=== PATIENT | male | born 1945 | race Hispanic/Latino ===

== ENCOUNTER 2025-03-31 19:39 | Emergency (ER) | payer MEDICARE ==
[~2025-03-31] VITALS: Ht 177.8 cm; Wt 65.8 kg
[2025-03-31 20:07] LABS: IMMATURE GRANULOCYTE ABSOLUTE 0.02 K/uL (0-1); NUCLEATED RED BLOOD CELLS 0.0 % (0.0-0.19); PLATELET COUNT (AUTO) 186 K/uL (130-400); RED BLOOD CELL COUNT(AUTO) 5.15 MIL/uL (4.50-6.20); RED CELL DISTRIBUTION WIDTH 14.3 % (11.0-15.5); WHITE BLOOD COUNT (AUTO) 6.9 K/uL (4.8-10.8)
[2025-03-31 20:14] LABS: CREATININE 1.0 mg/dL (0.5-1.3); GLOMERULAR FILTR. RATE CALC 76.0 mL/min (>90); GLUCOSE,RANDOM 135.0 mg/dL (70-105); SODIUM SERUM 141.0 mmol/L (136-145); UREA NITROGEN, BLOOD 15.0 mg/dL (7-18)
[2025-03-31 20:24] LABS: CREATINE KINASE, TOTAL 54.0 U/L (21-232)
--- NOTE | 2025-03-31 20:24 | ERN ---
ED Note History of Present Illness Stated Complaint: C/O PALPITATIONS, SOB Chief Complaint: Palpitations Time Seen by MD: 19:50 Dictation: This is an 79-year-old male who presented to the emergency room with complaints of off and on palpitations going on for many weeks and feels short of breath. He states that when he has palpitations he feels like a bubble in the epigastric area and lower chest area which gargles and he massages to get some relief. He denied any nausea vomitings. Patient reports feeling severe dizziness when he gets up and walks around. He had similar presentation in 2021 at which time extensive cardiac evaluation was done at the [facility] and he stated that he could not really follow up with any physician as his appointment were was rescheduled multiple times. He also had vestibular testing done which was abnormal. He has not been able to follow up with the ENT physician due to scheduling conflicts. In fact patient has seen a water meter installer in the past 2 years but he was unhappy. Patient basically expressed discontent with a all the physicians that he has seen so far. He denied any syncopal episodes. No headache facial drooping blurred vision diplopia motor weakness or seizure activities Temperature 98.4 pulse 84 respirations 20 blood pressure 165/99 with a pulse oximetry of 96% on room air His chronic medical problems include coronary artery disease status post cardiac stents placed in 2021, hypertension, history of atrial fibrillation Allergies: Coded Allergies: hydrochlorothiazide (Unverified Allergy, Unknown, 03/31/25) Past Medical History Past Medical History: A-Fib, Heart Disease, Hypertension Surgical History: Other Surgical History Other: CARDIAC STENTS Family History: Negative Social History: Negative RN Note Reviewed/Agreed w/PFSH: Yes Review of System Dictation Constitutional: Negative for fever,chills, and weight loss Eyes: Negative for injury, pain,redness, and discharge ENT: Negative for injury,pain or swelling positive for vestibular dysfunction Cardiovascular: Negative for chest pain, and edema positive for palpitations, Respiratory: Positive for shortness of breath, denied cough, and wheezing, Abdomen/GI: Negative for abdominal pain, nausea, vomiting, diarrhea, and constipation Back: Negative for injury and pain : Negative for injury, bleeding and discharge MS/Extremity: Negative for injury and deformity Skin: Negative for rash, and discoloration Neuro: Negative for headache, weakness, numbness, tingling, and seizure Psych: Negative for suicide ideation, homicidal ideation, and hallucinations Initial Vital Sign VS Vital Signs Date Time Temp Pulse Resp B/P (MAP) Pulse Ox O2 Delivery O2 Flow Rate FiO2 03/31/25 19:42 98.4 84 20 165/99 96 Room Air 03/31/25 20:13 0 21 Physical Exam Dictation General: awake, alert, NAD very thin elderly male who appears emaciated Head/Face: Normocephalic, atraumatic Eyes: PERRL, EOMI, vision at baseline ENT: oral cavity clear, TMs clear, no signs of infection poor dentition Neck: Trachea midline, supple, no nuchal rigidity I did not appreciate any carotid bruit Cardiovascular: Irregular No MRGs, no JVD Respiratory: Decreased breath sounds prolonged expiratory phase Abdomen: Soft, non-tender, non-distended, normal bowel sounds, no guarding or rebound. Skin: Warm, dry, normal turgor, no rash MS/Extremity: Pulses equal, no cyanosis, neurovascular intact, FROM Neuro: COAx4, GCS 15, strength 5/5, CN 2-12 intact, normal cerebellar exam, normal gait, Psych: Normal behavior, mood, and affect normal Extremities-trace edema without any palpable cords, Homans sign is negative Results (Laboratory/Radiology) Laboratory/Radiology Laboratory Tests Test 03/31/25 19:59 White Blood Count 6.9 K/uL (4.8-10.8) Red Blood Count 5.15 MIL/uL (4.50-6.20) Hemoglobin 15.2 g/dL (14.0-18.0) Hematocrit 45.1 % (42-54) Mean Corpuscular Volume 87.6 fL (79-99) Mean Corpuscular Hemoglobin 29.5 pg (27.0-33.0) Mean Corpuscular Hemoglobin Concent 33.7 g/dL (32.0-36.0) Red Cell Distribution Width 14.3 % (11.0-15.5) Platelet Count 186 K/uL (130-400) Mean Platelet Volume 10.1 fL (7.5-10.5) Immature Granulocyte % (Auto) 0.3 % (0-1) Neutrophils (%) (Auto) 71.6 % (40.0-77.0) Lymphocytes (%) (Auto) 17.1 % (21.0-51.0) L Monocytes (%) (Auto) 8.7 % (3.0-13.0) Eosinophils (%) (Auto) 1.9 % (0.0-8.0) Basophils (%) (Auto) 0.4 % (0.0-5.0) Neutrophils # (Auto) 5.0 K/uL (1.8-7.7) Lymphocytes # (Auto) 1.2 K/uL (1.0-4.8) Monocytes # (Auto) 0.6 K/uL (0.1-1.0) Eosinophils # (Auto) 0.13 K/uL (0.00-0.70) Basophils # (Auto) 0.03 K/uL (0.00-0.20) Absolute Immature Granulocyte (auto 0.02 K/uL (0-1) Nucleated Red Blood Cells 0.0 % (0.0-0.19) Sodium Level 141 mmol/L (136-145) Potassium Level 3.4 mmol/L (3.5-5.1) L Chloride Level 105 mmol/L (101-111) Carbon Dioxide Level 30 mmol/L (21-32) Blood Urea Nitrogen 15 mg/dL (7-18) Creatinine 1.0 mg/dL (0.5-1.3) Glomerular Filtration Rate Calc 76 mL/min (>90) Random Glucose 135 mg/dL (70-105) H Total Calcium 8.6 mg/dL (8.5-10.1) Magnesium Level 2.10 mg/dL (1.80-2.40) Total Creatine Kinase 54 U/L (21-232) Troponin I High Sensitivity 8 ng/L (4-75) B-Type Natriuretic Peptide 38 pg/mL (0-100) Labs Reviewed?: Yes ED Course ED Course Orders Procedure Category Date Status Time 12 Lead Ekg Tracing- EKG 03/31/25 Logged Technical 19:48 Cbc With Differential LAB 03/31/25 Complete 19:52 Chest 1vw RAD 03/31/25 Taken 19:52 12 Lead Ekg Tracing- EKG 03/31/25 Logged Technical 19:52 Magnesium LAB 03/31/25 Complete 19:52 Creatine Kinase, Total LAB 03/31/25 Complete 19:52 Troponin I High LAB 03/31/25 Complete Sensitivity 19:52 Urinalysis Profile LAB 03/31/25 Logged 19:52 Basic Metabolic Panel LAB 03/31/25 Complete 19:52 B-Type Natriuretic LAB 03/31/25 Complete Peptide 19:52 Vital Signs Date Time Temp Pulse Resp B/P (MAP) Pulse Ox O2 Delivery O2 Flow Rate FiO2 03/31/25 20:13 98.4 82 18 142/66 99 Room Air* 0 21 03/31/25 19:42 98.4 84 20 165/99 96 Room Air We will perform diagnostic labs, advanced imaging and administer medications according to the patient's complaint. Once the results are available, will review and personally interpreted the labs to rule out any acute life- threatening emergency the trach require immediate intervention and treatment. I will then re-evaluate the patient after treatment and diagnostic exams have ret urn to determine whether the patient requires any further testing, can safely be discharged home or need further admission to hospital for additional treatment and evaluation. Labs reviewed CBC is with a normal limits BNP 7 showed a potassium of 3.4 BUN an d creatinine are 15 and 1.0 with a glucose of 135. Troponins are negative brain natriuretic peptide is 38. Chest x-ray showed hyperinflation with COPD changes and mildly prominent markings. I had a long discussion with the patient and went over all the EKG chest x-ray and lab findings and recommended admission to the hospital at least for 48 hours to pursue further studies including echocardiogram to evaluate aortic valve disease, carotid Dopplers and perhaps have his vestibular function also evaluated. Patient stated that his [place] primary care physician is referring him to the cardiology group in [place] and that he would rather follow up as an outpatient. Medical Decision Making MDM Differential diagnosis: Paroxysmal atrial fibrillation, a flutter, sinus tachy, autonomic dysreflexia Rationale: Tests considered and ordered secondary to shared decision making include: Previous outside records reviewed: Old ER visits. Risk of complication and/or morbidity or mortality of patient management: None Medications-Per medication reconciliation Need for hospitalization: Patient does not meet criteria for hospitalization. Need for emergency major/minor surgery: No There are no social concerns with this patient. Prescription drug management Prescriptions will include symptomatic care Patient's prior external medical records from other ER visits were reviewed by me as indicated. Prior testing and results from previous visits were reviewed. Prior tests were taken into account with medical decision making and resource utilization, independent historian/historians were used to obtain complete medical history. I independently interpreted the test that were performed, results were reviewed by me and considered findings on radiology if ordered. Medical management and examination interpretation discussions were had by me with other qualified healthcare professionals as indicated for the patient's care. Problem List Problem List: (1) Paroxysmal atrial fibrillation (2) Coronary artery disease status post coronary stent insertion (3) Hypertension (4) Vestibular dysfunction DX & DISP Disposition: Discharge Departure Impression: Primary Impression: Paroxysmal atrial fibrillation Additional Impressions: Coronary artery disease status post coronary stent insertion, Hypertension, Vestibular dysfunction Condition: Stable Additional Instructions: Patient and the caregiver have been informed of all the diagnostic tests and the imaging conducted during the today's visit to the emergency room and has verbalized understanding of the results I have personally reviewed and interpreted all diagnostic exams performed here in the ER today as well as the vital signs documented by the nursing staff. The patient is now being discharged to home and should follow up with the primary care physician or the specialist as directed by the ER staff. Follow-up with primary care provider in 1 to 2 days. Take medications as directed here in the emergency room. Okay to continue home medications unless otherwise discussed during your visit in the emergency room today. Return to your nearest emergency room if symptoms worsen or if there is no improvement. Call 911 if you need immediate assistance. Take Tylenol or Motrin [id number] as needed and if no contraindications are present. Increase oral hydration. A wound culture or urine culture was ordered here in the emergency room department please follow-up with primary care provider and advise them to get repeat ports from our facility. If you had any Johs wrap/splints that were applied here, please do not remove them until you see your primary care or specialty. Patient to follow up with the cardiology referral given by his [place] primary care physician or return to the emergency room with any new symptoms. Referrals: SELF,REFERRAL (PCP) LYNDON DOMINGUEZ MD Mar 31, 2025 20:24
--- NOTE | 2025-03-31 20:47 | NUR ---
HOME MEDS NOT AVAIL AT BEDSIDE
[2025-03-31 21:55] VITALS: BP 152/65; PULSE 88; RESP 18; TEMP 98.5; O2SAT 98
--- NOTE | 2025-03-31 22:20 | HMCIMG ---
EXAM: CR Chest, 2 View. CLINICAL HISTORY: palpitations and shortness of breath COMPARISON: None provided. FINDINGS: LUNGS: The lungs show no infiltrate or other acute finding. PLEURAL SPACES: No evidence of pleural effusion or pneumothorax. MEDIASTINUM: The cardiomediastinal silhouette is within normal limits. BONES: No acute osseous abnormality. IMPRESSION: No acute cardiopulmonary pathology is evident. /Carmichaels
--- NOTE | 2025-04-01 08:52 | EKG ---
[facility] Test Date: 2025-03-31 Test Time: 19:38:37 Pat Name: VALERIE MATHEWS Department: [facility] Patient ID: [facility] [id number] Room: Gender: [employer] Cook: [id number] : 1945 Requested By: LYNDON DOMINGUEZ Order Number: [id number] Reading MD: Best Chiang Measurements Intervals [place] Rate: 80 P: 73 DE: 147 QRS: -45 QRSD: 127 T: 40 QT: 391 QTc: 452 Interpretive Statements Sinus rhythm RBBB and LAFB No previous ECG available for comparison Electronically Signed On 04-01-2025 19:43:23 CDT by Best Chiang Please click the below link to view image of tracing.
== END 2025-03-31 22:07 | disposition home or self-care (01) ==
LOC: EDH 19:39
DX: I48.0 Paroxysmal atrial fibrillation (principal); I25.10 Atherosclerotic heart disease of native coronary artery without angina pectoris; I10 Essential (primary) hypertension; Z95.5 Presence of coronary angioplasty implant and graft
CPT/HCPCS: 36415; 71045; 80048; 82550; 83735; 83880; 84484; 85025; 93005; 99285